=== PATIENT | male | born 1985 | race Caucasian/White ===

== ENCOUNTER 2017-01-03 14:52 | Emergency (ER) | payer MEDICAID ==
[~2017-01-03] VITALS: Ht 185.4 cm; Wt 102.1 kg
[~2017-01-03 14:52] MED LIST: IBUP1POW8; TRAMADOL
[2017-01-03 15:14] VITALS: BP 142/80
== END 2017-01-03 18:30 | disposition left against medical advice (07) ==
LOC: EDUNIT# 14:52 → ER 14:52
DX: F41.9 Anxiety disorder, unspecified (principal); Z53.21 Procedure and treatment not carried out due to patient leaving prior to being seen by health care provider
CPT/HCPCS: 93005